=== PATIENT | male | born 1955 | race Two or more races ===

== ENCOUNTER 2024-07-20 16:42 | Emergency (ER) | payer OTHER ==
[~2024-07-20] VITALS: Ht 157.5 cm; Wt 72.6 kg
[2024-07-20] MEDS ORDERED: IBUPROFEN 600 MG TABLET ONE (17:44)
[2024-07-20] MEDS: IBUPROFEN 600 MG TABLET PO ONE (17:49)
[2024-07-20 18:50] VITALS: BP 128/72; TEMP 98.1; O2SAT 98
== END 2024-07-20 18:51 | disposition home or self-care (01) ==
LOC: ER 16:42
DX: R07.81 Pleurodynia (principal); E11.9 Type 2 diabetes mellitus without complications; V43.52XA Car driver injured in collision with other type car in traffic accident, initial encounter; Y93.89 Activity, other specified; Y92.488 Other paved roadways as the place of occurrence of the external cause; Y99.8 Other external cause status
CPT/HCPCS: 71100-TC